=== PATIENT | male | born 1965 | race Caucasian/White ===

== ENCOUNTER 2017-12-05 00:44 | Day surgery (SDC) | payer OTHER ==
[~2017-12-05] VITALS: Ht 160 cm; Wt 64.9 kg
[~2017-12-05 00:44] MED LIST: ACET-2146 PO; IBUP-56 PO; LOSA25TA52 PO; NAPR220C12 PO
[2017-12-05] MEDS ORDERED: LIDOCAINE/SOD BICARB 8.4% SYR ID ONE (08:30)
[2017-12-05] MEDS ORDERED: NORMOSOL R SOLN(*) 1000 ML BAG 1,000 ML IV PRN (08:30)
[2017-12-05] MEDS ORDERED: PROPOFOL EMUL(*) 10MG/ML 20 ML 20 ML ONE (11:04)
[2017-12-05 11:58] VITALS: BP 148/103
[2017-12-05 13:27] VITALS: BP 129/90
[2017-12-05 13:45] VITALS: BP 129/86
[2017-12-05 13:52] VITALS: BP 131/97
[2017-12-05 13:53] VITALS: BP 122/92
== END 2017-12-05 13:50 | disposition home or self-care (01) ==
LOC: OR 00:44
PROVIDERS: ATTEND Family Medicine
DX: Z12.11 Encounter for screening for malignant neoplasm of colon (principal)
CPT/HCPCS: 00812; 45378; J2704